=== PATIENT | male | born 1985 | race Caucasian/White ===

== ENCOUNTER 2021-06-27 14:24 | Inpatient (IN) | payer OTHER ==
[2021-06-27] MEDS ORDERED: NICOTINE 10 MG CARTRIDGE (INHALER) IH PRN (15:19)
[2021-06-27] MEDS ORDERED: cloNIDine HCL 0.1 MG TABLET PO ONE (15:19)
[2021-06-27] MEDS ORDERED: ONDANSETRON *ODT* 4 MG TABLET SL PRN (15:19)
[2021-06-27] MEDS ORDERED: MAG HYDROX/AL HYDROX/SIMETH 30 ML UNIT-DOSE CUP PO PRN (15:19)
[2021-06-27] MEDS ORDERED: IBUPROFEN 400 MG TABLET (FP) PO PRN (15:19)
[2021-06-27] MEDS ORDERED: BISMUTH SUBSALICYLATE 262 MG/15 ML BTL PO PRN (15:19)
[2021-06-27] MEDS ORDERED: MENTHOL/PHENOL 1 EACH UD MM PRN (15:19)
[2021-06-27] MEDS ORDERED: BUPRENORPHINE HCL 150 MCG, BUPRENORPHINE HCL 75 MCG BC ONE (15:19)
[2021-06-27] MEDS ORDERED: MAGNESIUM HYDROX 2400MG/30ML ORAL SUSPENSION 30 ML CUP PO PRN (15:19)
[2021-06-27] MEDS ORDERED: MAGNESIUM CITRATE 300 ML BOTTLE PO PRN (15:19)
[2021-06-27] MEDS ORDERED: ACETAMINOPHEN 325 MG TABLET (FP) PO PRN ×2 (15:19)
[2021-06-27 15:37] VITALS: BMI 20.6
[2021-06-27] MEDS ORDERED: cloNIDine HCL 0.1 MG TABLET ONE (18:28)
[2021-06-27] MEDS ORDERED: BUPRENORPHINE HCL 75 MCG FILM BC ONE (18:28)
[2021-06-27] MEDS ORDERED: BUPRENORPHINE HCL 150 MCG FILM BC ONE (18:28)
[2021-06-27] MEDS ORDERED: hydrOXYzine PAMOATE 25 MG CAPSULE (FP) PO ONE (18:29)
[2021-06-27] MEDS: hydrOXYzine PAMOATE 25 MG CAPSULE (FP) PO SCH ×2 (18:30→22:13)
[2021-06-27] MEDS: NICOTINE 14 MG/24 HOURS TOPICAL PATCH TD SCH (19:31)
[2021-06-27] MEDS: PRENATAL VITAMINS W/ FOLIC ACID TABLET (FP) PO SCH (19:31)
[2021-06-27] MEDS: THIAMINE HCL 100 MG TABLET (FP) PO SCH (22:13)
[2021-06-27] MEDS: MELATONIN 5 MG TABLETS PO SCH (22:13)
[2021-06-27] MEDS: cloNIDine HCL 0.1 MG TABLET PO PRN (22:16)
[2021-06-28] MEDS ORDERED: BUPRENORPHINE HCL 75 MCG FILM BC ONE ×2 (04:54→17:16)
[2021-06-28] MEDS ORDERED: BUPRENORPHINE HCL 150 MCG FILM BC ONE ×2 (04:54→17:17)
[2021-06-28] MEDS: hydrOXYzine PAMOATE 25 MG CAPSULE (FP) PO SCH ×5 (05:45→22:13)
[2021-06-28] MEDS: BUPRENORPHINE HCL 150 MCG, BUPRENORPHINE HCL 75 MCG BC SCH ×2 (05:45→17:42)
[2021-06-28] MEDS: METHOCARBAMOL 500 MG TABLET PO PRN ×3 (05:46→17:41)
[2021-06-28] MEDS: diazePAM 5 MG TABLET PO PRN ×3 (07:23→22:13)
[2021-06-28 09:36] LABS: HEMATOCRIT 36.8 % (35.4-49); HEMOGLOBIN 12.3 GM/dL (11.7-16.9); MCH 26.1 pg (25.7-33.7); MCHC 33.3 g/dl (32.0-35.9); MEAN CELL VOLUME 78.5 fl (80-96); MEAN PLT VOLUME 10.1 fl (7.5-11.1); PLATELET COUNT 187 10^3/uL (134-434); RBC 4.69 M/mm3 (4.00-5.60); RDW 13.9 % (11.9-15.9); WHITE BLOOD COUNT 5.4 K/mm3 (4.0-10.0)
[2021-06-28] MEDS: cloNIDine HCL 0.1 MG TABLET PO PRN ×2 (09:53→17:41)
[2021-06-28] MEDS: PRENATAL VITAMINS W/ FOLIC ACID TABLET (FP) PO SCH (09:54)
[2021-06-28] MEDS: NICOTINE 14 MG/24 HOURS TOPICAL PATCH TD SCH ×2 (09:54→09:59)
[2021-06-28 10:40] LABS: CALCIUM 9.4 mg/dL (8.5-10.1)
[2021-06-28 10:41] LABS: ALBUMIN 3.2 g/dl (3.4-5.0); BLOOD UREA NITROGEN 11.5 mg/dL (7-18)
[2021-06-28 10:46] LABS: TOT PROT 6.6 g/dl (6.4-8.2)
[2021-06-28 10:47] LABS: CREATININE 0.8 mg/dL (0.55-1.3)
[2021-06-28 10:50] LABS: BILIRUBIN,TOTAL 0.8 mg/dL (0.2-1)
[2021-06-28] MEDS: MELATONIN 5 MG TABLETS PO SCH (22:12)
[2021-06-28] MEDS: THIAMINE HCL 100 MG TABLET (FP) PO SCH (22:13)
[2021-06-29] MEDS: hydrOXYzine PAMOATE 25 MG CAPSULE (FP) PO SCH ×4 (05:49→18:02)
[2021-06-29] MEDS: BUPRENORPHINE HCL 450 MCG FILM BC SCH ×2 (05:49→18:01)
[2021-06-29] MEDS: diazePAM 5 MG TABLET PO PRN ×2 (05:52→11:08)
[2021-06-29] MEDS: METHOCARBAMOL 500 MG TABLET PO PRN (10:27)
[2021-06-29] MEDS: PRENATAL VITAMINS W/ FOLIC ACID TABLET (FP) PO SCH (10:27)
[2021-06-29] MEDS: NICOTINE 14 MG/24 HOURS TOPICAL PATCH TD SCH (10:28)
[2021-06-29 17:06] VITALS: BP 142/90; PULSE 101; TEMP 97.7
[2021-06-30] MEDS ORDERED: BUPRENORPHINE/NALOXONE 4 MG/1 MG FILM PACKET SL SCH (06:00)
[2021-07-01] MEDS ORDERED: BUPRENORPHINE/NALOXONE 8 MG/2 MG FILM PACKET SL ONE (06:00)
== END 2021-06-29 18:09 | disposition home or self-care (01) | DRG 773 ==
LOC: YASAS 14:24 → Y3N 17:54
PROVIDERS: ADMIT Allergy & Immunology; ATTEND Allergy & Immunology
PROC: HZ2ZZZZ Detoxification Services for Substance Abuse Treatment (ICD-10-PCS; principal; 2021-06-27)
DX: F11.23 Opioid dependence with withdrawal (principal); F10.20 Alcohol dependence, uncomplicated; F13.20 Sedative, hypnotic or anxiolytic dependence, uncomplicated; F17.210 Nicotine dependence, cigarettes, uncomplicated; G47.00 Insomnia, unspecified; R74.01 Elevation of levels of liver transaminase levels
CPT/HCPCS: 36415; 80053; 85027; 86780; 93005; 93010; C9803; J0735; U0003; U0005